=== PATIENT | male | born 1965 | race Hispanic/Latino ===

== ENCOUNTER 2017-07-24 05:54 | Day surgery (SDC) | payer OTHER ==
[2017-07-23 14:13] VITALS: BMI 32.3
[2017-07-24] MEDS ORDERED: Lactated Ringer's 1,000 ML IV ONE ×2 (06:43→11:15)
[2017-07-24] MEDS ORDERED: SENSORCAINE 0.5% W/EPINEPHRINE 50ML MDV IJ ONE (06:58)
[2017-07-24] MEDS ORDERED: Ropivacaine 0.5% 30ML IV ONE (06:58)
[2017-07-24] MEDS ORDERED: Propofol 10 mg/ml Inj (20 ML) ONE (07:04)
[2017-07-24] MEDS ORDERED: Etomidate 20 mg/10ml Inj IV ONE (07:04)
[2017-07-24] MEDS ORDERED: Phenylephrine 10 mg/ml Inj ONE ×2 (07:04→12:02)
[2017-07-24] MEDS ORDERED: Succinylcholine 200 mg/10 ml Inj IV ONE ×2 (07:04→12:04)
[2017-07-24] MEDS ORDERED: Rocuronium 10 mg/ml (5 ml) ONE ×2 (07:04→09:17)
[2017-07-24] MEDS ORDERED: ceFAZolin IV 1 gm in Dextrose 2 GM/100 ML BAG IVPB ONE (07:18)
[2017-07-24] MEDS ORDERED: EPINEPHrine 1 mg/ml (1:1000) Inj ONE (07:18)
--- NOTE | 2017-07-24 07:25 | CP.SDSHP ---
Same Day Surgery H & P - History Proposed Procedure: Right shoulder arthroscopy, possible rotator cuff repair, labral repair, acromioplasty Pre-Op Diagnosis: Right shoulder rotator cuff tear, labral tear, impingment - Previous Medical/Surgical History Endocrine/Metabolic: Diabetes, Other (ZOHRA) Previous Surgical History: Left shoulder arthroscopy, left wrist - Allergies Allergies: Allergies No Known Allergies Allergy (Verified 05/16/15 10:06) - Physical Exam Vital Signs: Vital Signs 07/24/17 07/24/17 06:21 06:24 Temperature 98.2 F Pulse Rate 81 81 Respiratory 20 Rate Blood Pressure 123/88 O2 Sat by Pulse 96 Oximetry Mental Status: Alert & Oriented x3 Heart: WNL Lungs: WNL GI: WNL - {Optional Preform as Required} Ortho: Other (+Radial pulse, sensation intact, +ROM wrist/fingers) Other Pertinent Findings: MRI on chart - Impression Impression: 51M with 3-4 months of shoulder pain found to have rotator cuff tear , labral tear, impginement for arthroscopy Pt. Evaluated Today:Candidate for Anesthesia & Procedure: Yes - Date & Time Date: 07/24/17 Time: 07:26 Short Stay Discharge - Short Stay Discharge Admitting Diagnosis/Reason for Visit: M54.06 M46.1 Disposition: HOME/ ROUTINE Referrals: Braulio Tran III, MD [Primary Care Provider] - Past Patient History - Past Medical History & Family History Past Medical History?: Yes - Past Social History Smoking Status: Never Smoked - CARDIAC Hx Cardiac Disorders: No Hx Hypercholesterolemia: Yes - PULMONARY Hx Respiratory Disorders: Yes Hx Sleep Apnea: Yes - NEUROLOGICAL Hx Neurological Disorder: No - HEENT Hx HEENT Problems: No - RENAL Hx Chronic Kidney Disease: No - ENDOCRINE/METABOLIC Hx Endocrine Disorders: Yes Hx Diabetes Mellitus Type 1: Yes Hx Diabetes Mellitus Type 2: Yes - HEMATOLOGICAL/ONCOLOGICAL Hx Blood Disorders: No - INTEGUMENTARY Hx Dermatological Problems: No - MUSCULOSKELETAL/RHEUMATOLOGICAL Hx Musculoskeletal Disorders: Yes Hx Arthritis: Yes Other/Comment: LIMIT JOINT MOTION - GASTROINTESTINAL Hx Gastrointestinal Disorders: No - GENITOURINARY/GYNECOLOGICAL Hx Genitourinary Disorders: No - PSYCHIATRIC Hx Psychophysiologic Disorder: No Hx Emotional Abuse: No Hx Physical Abuse: No - SURGICAL HISTORY Hx Surgeries: Yes Hx Orthopedic Surgery: Yes (LEFT SHOULDER 2009) Other/Comment: CARPAL TUNNEL RELEASE LEFT - ANESTHESIA Hx Anesthesia: Yes Hx Anesthesia Reactions: No Hx Malignant Hyperthermia: No Has any member of the family had a problem w/ anesthesia?: No
[2017-07-24] MEDS ORDERED: Lidocaine 1% Inj (20ml) ONE ×2 (07:33→07:46)
[2017-07-24] MEDS ORDERED: Midazolam 2 MG/2 ML VIAL ONE (07:48)
[2017-07-24] MEDS ORDERED: Lidocaine 1% Inj (20ml) IJ ONE ×2 (08:55)
[2017-07-24] MEDS ORDERED: Dexamethasone 4 mg/1 ml ONE (09:14)
[2017-07-24] MEDS ORDERED: Neostigmine Methylsulfate 3mg/3ml Syringe IV ONE (10:21)
[2017-07-24] MEDS ORDERED: Neostigmine Methylsulfate 2 MG/2 ML ML IV ONE (10:21)
[2017-07-24] MEDS ORDERED: Oxycodone/Acetaminophen 5/325 mg Tab PO PRN (11:24)
[2017-07-24] MEDS ORDERED: HYDROmorphone 0.5 mg/0.5 ml ISec IVP PRN (11:25)
--- NOTE | 2017-07-24 11:25 | PCM.SURG1 ---
Surgeon's Initial Post Op Note - Surgeon's Notes Surgeon: Marc Team Foreman: YONATAN Uribe Type of Anesthesia: General Endo, Block Regional Anesthesia Administered By: DR tommy Dudley Pre-Operative Diagnosis: tear R rotator cuff. tear glenoid labrum. biceps tendon avulsion Operative Findings: as above. Acromiclavicular joint arthropathy. chondral damage glenoid. synvotis glenohumeral joint- Post-Operative Diagnosis: as above Operation Performed: arthroscopic rotator cuff repair. arthroscopic repair slap lesion Right shoulder. arthroscopic repair biceps tendon avulsion. ] arthroscopiuc debridment glenohumerla joint and chodroplasty. arhtroscopicsubacromial decompression/partial synovectomy/lysis of adhesions Specimen/Specimens Removed: synovium/cartilage/ Estimated Blood Loss: EBL {In ML}: 10 Drains Used: No Drains Post-Op Condition: Good Date of Surgery/Procedure: 07/24/17 Time of Surgery/Procedure: 08:55 (time inm room/anestahesia indcution time 7;45)
[2017-07-24] MEDS ORDERED: Insulin Lispro (humaLOG) 100 Units/ml Inj SC STA (11:27)
[2017-07-24] MEDS ORDERED: Lactated Ringer's 1,000 ML IV SCH (11:30)
[2017-07-24 11:42] VITALS: RESP 18
[2017-07-24 13:59] VITALS: BP 121/88; PULSE 109; TEMP 97.7; O2SAT 95
--- NOTE | 2017-07-27 16:24 | OP ---
PROCEDURE DATE: 07/24/2017 PREOPERATIVE DIAGNOSES: 1. Grade III rotator cuff tear of the right shoulder. 2. Tear of glenoid labrum. POSTOPERATIVE DIAGNOSES: 1. Complete tear of the rotator cuff with approximately 1 cm retraction. 2. Complete tear of the glenoid labrum, grade II slap lesion extending anterior to posterior to the root of the biceps tendon. 3. Avulsion of the biceps tendon anchor. 4. Acromioclavicular joint arthropathy. 5. Synovitis and chondral damage of glenoid. 6. Exuberant bursa and adhesions in the subacromial space. PROCEDURE: 1. Arthroscopic repair of right rotator cuff. 2. Arthroscopic repair of glenoid labrum. 3. Arthroscopic intra-articular biceps tenodesis. 4. Arthroscopic partial distal claviculectomy. 5. Arthroscopic acromioplasty. 6. Arthroscopic extensive debridement of the glenohumeral joint and chondroplasty. 7. Arthroscopic lysis of adhesions and partial bursectomy in the subacromial space. SURGEON: Braulio Tran MD. LINING VAMPER: Flori Mcgill, certified registered nursing stylist assistant. TYPE OF ANESTHESIA: General and regional anesthesia. ANESTHESIA ADMINISTERED BY: Bryon Landers MD. COMPLICATION: There is no complications. DRAINS: No drains. BLOOD LOSS: 15 mL. OPERATIVE INDICATIONS: Mark Thapa is a patient well-known to my practice, who presents with MRI positive tear of the rotator cuff of the right shoulder. The patient also has evidence for glenoid labral tear and AC joint arthropathy. The patient has been refractory to conservative approach consisting of nonsteroidal anti-inflammatory medication, intraarticular injection, activity modification and therapy. Pros, cons, risks and benefits of the arthroscopic approach were discussed. Possibility of mechanical failure, infection, stiffness secondary or tertiary surgery was discussed. Possibility of nerve injury was discussed. The patient understands the discomfort and wished the surgery to be accomplished. DESCRIPTION OF PROCEDURE: After having obtained informed consent in the above fashion, after the satisfactory induction of general and regional anesthesia, after having identified side, site and procedure and critical pause/time-out, after the satisfactory induction of the anesthetic, the patient identified as Mark Thapa in the modified Avilez chair position, the right upper extremity was prepped and free draped in the usual fashion for extremity surgery. The topographic anatomy of the shoulder was marked, spine of the scapula, lateral aspect of the acromion, coracoid process. After sterilely prepping and draping, the shoulder was insufflated with 10 mL of 1% lidocaine without epinephrine using #11 blade followed by spreading, introduction of blunt trocar, the arthroscope was introduced. Triangulation was accomplished using #18-gauge spinal needle anteriorly and great care was taken to stay lateral to the coracoid process to avoid injury to the musculocutaneous nerve. This having been accomplished, using the introduction of the spinal needle followed by #11 blade, followed by spreading, introduction of the Wissinger haroldo and the cannula anteriorly with the arthroscope posteriorly. There was found to be evidence of a chondral fracture of the glenoid labrum as well as complete separation of the glenoid from the anterior aspect of the labrum from the anterior aspect of the glenoid, the site of the separation of the biceps tendon. The arthroscope posteriorly, extensive debridement of the glenohumeral joint and chondroplasty was accomplished with a combination of the 3.4 mm Dyonics suction punch and the arthroscopic shaver, chondroplasty and extensive debridement of the glenohumeral joint having been accomplished from posterolateral portal using #18-gauge spinal needle followed by #1 blade followed by spreading, the joint was introduced from the posterolateral approach. At this point in time, the anterior aspect of the glenoid was roughened using the 3.4 mm Dyonics suction punch. The shaver was accomplished to roughen the anterior aspect of the glenoid to the area of the supraglenoid tubercle. The nitinol wire was introduced and it was brought out posteriorly. The labrum was then snared and the wire was brought out posteriorly and using the retriever, both limbs of the suture brought out anteriorly. This having been accomplished, with the arthroscope posteriorly, drilling was accomplished anteriorly at the 1 o'clock position. The anchor was loaded and the PushLock anchor was introduced. A second anchor was placed inferiorly at the 3 o'clock position to offer repair of the glenoid labral separation. At this point in time, intra-articular biceps tenodesis was accomplished. The nitinol wire was placed through the root of the biceps tendon anchor, brought out posteriorly. The fiber braid was brought out anteriorly. It was grasped and the drilling was accomplished and the fiber wire was loaded. Drilling was accomplished at the superior aspect of the glenoid in the region of the supraglenoid tubercle. This having been accomplished, PushLock anchor was introduced. Biceps tenodesis and repair were accomplished intra-articularly. This having been accomplished, further debridement of the glenoid joint was continued. Hemostasis controlled with the Fleming surface. At this point in time with the arm in dependency, the arthroscope was placed in the subacromial space. There was found to be extensive adhesions and bursitis in the subacromial space. Triangulation was accomplished using a #18 gauge spinal needle followed by #11 blade. With the arthroscope posteriorly, using a combination of the arthroscopic shaver and the ArthroCare wand, an extensive debridement of the subacromial space accomplished using arthroscopic shaver and the arthroscopic wand. This having been accomplished, the wound was thoroughly irrigated. The rotator cuff tear was identified and was debrided. The debridement was carried down to the insertion of the rotator cuff on the greater tuberosity. This having been accomplished, another portal was accomplished just off the clavicle using a #18-gauge spinal needle followed by #11 blade. This having been accomplished, the Scorpion was used for the far aspect of the elliptical tear. It was brought out through the lateral portal. The second limb was placed. The Scorpion was reloaded using the V technique. The second limb was reintroduced. Using the retriever, the limbs of the fiber braid brought out superiorly with the arm in abduction and internal rotation. The SwiveLock anchor was introduced. It was punched and this having been accomplished, the SwiveLock anchor was introduced and it was buried with the SwiveLock technique. The repair was found to be excellent. This having been accomplished, secondary repair was accomplished with the additional FiberWire. It was placed in the Scorpion and further repair was accomplished using the knot pusher. The wound was thoroughly irrigated. At this point in time, there was found to be evidence of AC joint arthropathy. With the arthroscope posterolaterally in the mid lateral portal of the jerome, a careful partial distal claviculectomy was accomplished using the arthroscopic jerome. With the arthroscope had been laterally and with the jerome anteriorly, a partial distal claviculectomy was accomplished with the arthroscope mid laterally. The arthroscopic jerome was placed anteriorly and a partial distal claviculectomy was accomplished using the jerome for the articular cartilage. Approximately 1 cm distal clavicle was excised. At this point in time, a partial acromioplasty was accomplished as well with the arthroscope now posteriorly with the arthroscopic jerome mid laterally, a partial acromioplasty was accomplished. The wound was thoroughly irrigated. At this point in time, completion of the arthroscopic debridement of lysis of adhesions in the subacromial space was accomplished. Thorough irrigation was accomplished. Closure of the wires with interrupted Vicryl and nylon. A shoulder immobilizer and gunslinger type abduction splint was applied. Braulio Tran MD
== END 2017-07-24 14:40 | disposition home or self-care (01) ==
LOC: H.OPSURG 05:54
PROVIDERS: ATTEND Orthopaedic Surgery
DX: M54.06 Panniculitis affecting regions of neck and back, lumbar region (principal); M46.1 Sacroiliitis, not elsewhere classified; G47.33 Obstructive sleep apnea (adult) (pediatric); E11.9 Type 2 diabetes mellitus without complications; M75.121 Complete rotator cuff tear or rupture of right shoulder, not specified as traumatic; M12.811 Other specific arthropathies, not elsewhere classified, right shoulder; M65.811 Other synovitis and tenosynovitis, right shoulder
CPT/HCPCS: 29823; 29824; 29825; 29826; 29827; 29828; 82948; C1713; J0171; J0330; J0690; J1100; J2001; J2250; J2370; J2405; J2704; J2710; J2765; J3010; J7030; J7120